=== PATIENT | male | born 1970 | race American Indian/Alaskan Native ===

== ENCOUNTER 2021-05-11 20:55 | Observation (INO) | payer MEDICAID ==
[2021-05-11 21:48] LABS: Basophils # (Auto) 0.1 K/mm3 (0.0-0.1); Basophils % (Auto) 2.1 % (0.0-1.8); Eosinophils # (Auto) 0.3 K/mm3 (0.0-0.4); Eosinophils % (Auto) 7.6 % (0.0-4.3); Hematocrit 34.5 % (35.5-45.6); Hemoglobin 10.9 gm/dl (11.8-15.2); Lymphocytes # (Auto) 1.1 K/mm3 (1.2-5.4); Lymphocytes % (Auto) 25.3 % (13.4-35.0); Mean Corpuscular HGB Conc 32 % (32-34); Mean Corpuscular Volume 99 fl (84-94); Monocytes # (Auto) 0.5 K/mm3 (0.0-0.8); Monocytes % (Auto) 11.2 % (0.0-7.3); Platelet Count 130 K/mm3 (140-440); Red Blood Count 3.49 M/mm3 (3.65-5.03); Red Cell Distribution Width 16.1 % (13.2-15.2)
--- NOTE | 2021-05-11 21:54 | XRay Report ---
CHEST 2 VIEWS INDICATION / CLINICAL INFORMATION: Chest Pain. COMPARISON: None available. FINDINGS: SUPPORT DEVICES: None. HEART / MEDIASTINUM: No significant abnormality. LUNGS / PLEURA: Granular opacities are noted scattered throughout the lungs. No pneumothorax. ADDITIONAL FINDINGS: No significant additional findings. IMPRESSION: 1. Granular opacities are noted scattered throughout the lungs which may represent atypical infectiou s process. Signer Name: Kirk Santos DO Signed: 05/11/2021 9:49 PM Workstation Name: [id number]
[2021-05-11 22:01] LABS: Albumin 4.7 g/dL (3.9-5); Blood Urea Nitrogen 69 mg/dL (9-20); Calcium 10.4 mg/dL (8.4-10.2); Hemolysis Index 10
[2021-05-11 22:06] LABS: Alanine Aminotransferase < 5 units/L (7-56); BUN/Creatinine Ratio 5
[2021-05-11 22:25] LABS: Chol/HDL Ratio 3.57 %; HDL Cholesterol 45 mg/dL (40-59); LDL Cholesterol,Direct 99 mg/dL (50-130)
[2021-05-11] MEDS ORDERED: ASPIRIN 81 MG TAB CHEW PO ONE (23:42)
[2021-05-11] MEDS ORDERED: oxyCODONE /ACETAMINOPHEN 5-325MG TAB PO ONE (23:42)
[2021-05-11] MEDS ORDERED: MORPHINE 4 MG/1 ML INJ IV ONE (23:42)
[2021-05-11] MEDS ORDERED: ONDANSETRON 4 MG/2 ML INJ IV ONE (23:42)
[2021-05-12] MEDS ORDERED: ASPIRIN 81 MG TAB CHEW PO ONE (00:45)
--- NOTE | 2021-05-12 00:45 | Emergency Department Report ---
ED Chest Pain HPI - General Chief Complaint: Chest Pain Stated Complaint: CHEST PAIN PUI?: No Time Seen by Provider: 05/11/21 21:14 Source: patient, EMS Mode of arrival: Stretcher Limitations: No Limitations - History of Present Illness Initial Comments: CC: chest pain HPI: This is a 50 yo male with hx of [place], CVA, ESRD on HD who presents with chest pain gradual onset. Sharp right to left chest pain. Has f/u for "MRI for heart". Received HD at [facility]. Has had chest pain intermittently for several months. Has had recent evaluation for similar symptoms. MD Complaint: chest pain -: Gradual, This evening Onset: during rest Severity scale (0 -10): 7 Quality: sharp Consistency: constant Improves With: nothing Worsens With: nothing Context: recent illness Treatments Prior to Arrival: none - Related Data Allergies Allergy/AdvReac Type Severity Reaction Status Date / Time No Known Allergies Allergy Verified 05/11/21 21:02 Heart Score - HEART Score History: Slightly suspicious EKG: Significant ST-depression Age: 45-65 Risk factors: 1-2 risk factors Troponin: 1-3x normal limit HEART Score: 5 - EKG Read Time Time EKG Completed: 21:57 EKG Read Time: 21:57 ED Review of Systems ROS: Stated complaint: CHEST PAIN Other details as noted in HPI Comment: All other systems reviewed and negative Constitutional: denies: chills, fever, malaise Respiratory: denies: cough, shortness of breath Cardiovascular: chest pain Gastrointestinal: denies: abdominal pain, nausea, vomiting Musculoskeletal: denies: back pain ED Past Medical Hx - Past Medical History Previous Medical History?: Yes Hx Hypertension: Yes Hx Heart Attack/AMI: Yes Hx Congestive Heart Failure: Yes Hx Liver Disease: Yes - Surgical History Past Surgical History?: Yes - Social History Smoking Status: Never Smoker Substance Use Type: None ED Physical Exam - General Limitations: No Limitations General appearance: alert, in no apparent distress - Head Head exam: Present: atraumatic, normocephalic - Eye Eye exam: Present: normal appearance - ENT ENT exam: Present: mucous membranes moist - Neck Neck exam: Present: normal inspection. Absent: full ROM - Respiratory Respiratory exam: Present: normal lung sounds bilaterally. Absent: respiratory distress, wheezes, rales, rhonchi - Cardiovascular Cardiovascular Exam: Present: normal heart sounds. Absent: systolic murmur, diastolic murmur, rubs, gallop - GI/Abdominal GI/Abdominal exam: Present: soft, normal bowel sounds. Absent: distended, tenderness, guarding, rebound - Rectal Rectal exam: Present: deferred - Extremities Exam Extremities exam: Present: normal inspection - Back Exam Back exam: Present: normal inspection - Neurological Exam Neurological exam: Present: alert, oriented X3 - Psychiatric Psychiatric exam: Present: normal affect, normal mood - Skin Skin exam: Present: warm, dry, intact, normal color. Absent: rash ED Course Vital Signs 05/11/21 05/11/21 05/12/21 21:02 21:44 00:03 Temperature 98.7 F Pulse Rate 85 81 Respiratory 19 15 Rate Blood Pressure 181/121 189/104 [Right] O2 Sat by Pulse 98 97 96 Oximetry ED Medical Decision Making - Lab Data Result diagrams: 05/11/21 21:30 05/11/21 21:30 Laboratory Results - last 24 hr 05/11/21 05/11/21 21:30 21:30 WBC 4.4 L RBC 3.49 L Hgb 10.9 L Hct 34.5 L MCV 99 H MCH 31 MCHC 32 RDW 16.1 H Plt Count 130 L Lymph % (Auto) 25.3 [place] % (Auto) 11.2 H Eos % (Auto) 7.6 H Baso % (Auto) 2.1 H Lymph # (Auto) 1.1 L [place] # (Auto) 0.5 Eos # (Auto) 0.3 Baso # (Auto) 0.1 Seg Neutrophils % 53.8 Seg Neutrophils # 2.4 Sodium 141 Potassium 5.1 H Chloride 97.0 L Carbon Dioxide 25 Anion Gap 24 BUN 69 H Creatinine 14.2 H Estimated GFR 4 BUN/Creatinine Ratio 5 Glucose 91 Calcium 10.4 H Total Bilirubin 0.40 AST 7 ALT < 5 L Alkaline Phosphatase 152 H Troponin T 0.214 H* Total Protein 7.5 Albumin 4.7 Albumin/Globulin Ratio 1.7 Triglycerides 95 Cholesterol 161 LDL Cholesterol Direct 99 HDL Cholesterol 45 Cholesterol/HDL Ratio 3.57 Lipase 62 H - EKG Data 05/12/21 00:43 EKG obtained 2157 EKG interpreted me Rate 70 bpm normal sinus rhythm normal axis normal intervals positive LVH nonspecific ST-T wave pattern no ST elevation - Radiology Data Radiology results: report reviewed Chest radiograph 2 views: Current opacity scattered throughout the months which may represent atypical infectious process - Medical Decision Making Chest pain: History of CAD, will admit for cardiac evaluation. No persistent tachycardia or hypoxia to indicate pulmonary embolism or infectious process. Patient received IV p.o. analgesia as well as aspirin. Critical care attestation.: If time is entered above; I have spent that time in minutes in the direct care of this critically ill patient, excluding procedure time. ED Disposition Clinical Impression: Acute coronary syndrome Disposition: ADMITTED INPATIENT Is pt being admited?: No Does the pt Need Aspirin: No Condition: Stable
[2021-05-12] MEDS ORDERED: NITROGLYCERIN 0.4 MG TAB SUBL SL PRN (02:42)
[2021-05-12] MEDS ORDERED: ACETAMINOPHEN 325 MG TAB PO PRN (02:42)
[2021-05-12] MEDS ORDERED: traMADol 50 MG TAB PO PRN (02:42)
[2021-05-12] MEDS ORDERED: MORPHINE 2 MG/1 ML INJ IV PRN (02:42)
[2021-05-12] MEDS ORDERED: HYDROmorphone 1 MG/1 ML INJ IV PRN (02:42)
--- NOTE | 2021-05-12 02:51 | History and Physical Report ---
History of Present Illness Date of examination: 05/12/21 Date of admission: 05/12/21 Chief complaint: Chest pain History of present illness: 50 yo male with past medical history of CVA, [place], end-stage renal disease on hemodialysis was brought to the emergency room because of chest pain. Chest pain is sharp 7/10 constant to left chest pain. Received HD at [facility]. Has had chest pain intermittently for several months. Has had recent evaluation for similar symptoms In the emergency room patient is found to have troponin of 0.214 also patient BUN is 69 creatinine is 14.2 and potassium is 5.1 she will going to admit the patient to put the patient on chest pain pathway we also consult cardiology and nephrology for evaluation Med rec is not available Past History Past Medical History: acute [place], ESRD, stroke Medications and Allergies Allergies Allergy/AdvReac Type Severity Reaction Status Date / Time No Known Allergies Allergy Verified 05/11/21 21:02 Active Meds: Active Medications Acetaminophen (Acetaminophen 325 Mg Tab) 650 mg PO Q6H PRN PRN Reason: Pain, Mild (1-3) Aspirin (Aspirin Ec 325 Mg Tab) 325 mg PO QDAY IVONE Atorvastatin Calcium (Atorvastatin 40 Mg Tab) 40 mg PO QHS IVONE Heparin Sodium (Porcine) (Heparin 5,000 Unit/1 Ml Vial) 5,000 unit SUB-Q Q8HR IVONE Hydromorphone HCl (Hydromorphone 1 Mg/1 Ml Inj) 0.25 mg IV Q5MIN PRN PRN Reason: Chest Pain Morphine Sulfate (Morphine 4 Mg/1 Ml Inj) 2 mg IV Q5MIN PRN PRN Reason: Chest Pain unrelieved by NTG Nitroglycerin (Nitroglycerin 0.4 Mg Tab Subl) 0.4 mg SL Q5M PRN PRN Reason: Chest Pain Pantoprazole Sodium (Pantoprazole 40 Mg Tab) 40 mg PO QDAY IVONE Sodium Chloride (Sodium Chloride 0.9% 10 Ml Flush Syringe) 10 ml IV PRN PRN PRN Reason: LINE FLUSH Tramadol HCl (Tramadol 50 Mg Tab) 50 mg PO Q6H PRN PRN Reason: Pain, Moderate (4-6) Review of Systems All systems: negative Cardiovascular: chest pain Exam - Constitutional Vitals: Temp Pulse Resp BP Pulse Ox 98.7 F 81 15 189/104 96 05/11/21 21:02 05/12/21 00:03 05/12/21 00:03 05/12/21 00:03 05/12/21 00:03 General appearance: Present: no acute distress, well-nourished - EENT Eyes: Present: PERRL ENT: hearing intact, clear oral mucosa - Neck Neck: Present: supple, normal ROM - Respiratory Respiratory effort: normal Respiratory: bilateral: diminished - Cardiovascular Heart Sounds: Present: S1 & S2. Absent: rub, click - Extremities Extremities: pulses symmetrical, No edema Peripheral Pulses: within normal limits - Abdominal General gastrointestinal: Present: soft, non-tender, non-distended, normal bowel sounds Male genitourinary: Present: normal - Integumentary Integumentary: Present: clear, warm, dry - Musculoskeletal Musculoskeletal: gait normal, strength equal bilaterally - Psychiatric Psychiatric: appropriate mood/affect, intact judgment & insight - Neurologic Neurologic: CNII-XII intact, moves all extremities HEART Score - HEART Score EKG: Significant ST-depression Age: 45-65 Risk factors: 1-2 risk factors Troponin: Troponin T 0.214 ng/mL (0.00-0.029) H* 05/11/21 21:30 Troponin: 1-3x normal limit Results - Labs CBC & Chem 7: 05/11/21 21:30 05/11/21 21:30 Labs: Laboratory Last Values WBC 4.4 K/mm3 (4.5-11.0) L 05/11/21 21: RBC 3.49 M/mm3 (3.65-5.03) L 05/11/21 21: Hgb 10.9 gm/dl (11.8-15.2) L 05/11/21 21: Hct 34.5 % (35.5-45.6) L 05/11/21 21:30 MCV 99 fl (84-94) H 05/11/21 21: MCH 31 pg (28-32) 05/11/21 21: MCHC 32 % (32-34) 05/11/21 21: RDW 16.1 % (13.2-15.2) H 05/11/21 21:30 Plt Count 130 K/mm3 (140-440) L 05/11/21 21: Lymph % (Auto) 25.3 % (13.4-35.0) 05/11/21 21:30 [place] % (Auto) 11.2 % (0.0-7.3) H 05/11/21 21: Eos % (Auto) 7.6 % (0.0-4.3) H 05/11/21 21: Baso % (Auto) 2.1 % (0.0-1.8) H 05/11/21 21: Lymph # (Auto) 1.1 K/mm3 (1.2-5.4) L 05/11/21 21:30 [place] # (Auto) 0.5 K/mm3 (0.0-0.8) 05/11/21 21: Eos # (Auto) 0.3 K/mm3 (0.0-0.4) 05/11/21 21: Baso # (Auto) 0.1 K/mm3 (0.0-0.1) 05/11/21 21: Seg Neutrophils % 53.8 % (40.0-70.0) 05/11/21 21: Seg Neutrophils # 2.4 K/mm3 (1.8-7.7) 05/11/21 21:30 Sodium 141 mmol/L (137-145) 05/11/21 21: Potassium 5.1 mmol/L (3.6-5.0) H 05/11/21 21: Chloride 97.0 mmol/L (98-107) L 05/11/21 21: Carbon Dioxide 25 mmol/L (22-30) 05/11/21 21: Anion Gap 24 mmol/L 05/11/21 21: BUN 69 mg/dL (9-20) H 05/11/21 21:30 Creatinine 14.2 mg/dL (0.8-1.3) H 05/11/21 21:30 Estimated GFR 4 ml/min 05/11/21 21: BUN/Creatinine Ratio 5 % 05/11/21 21: Glucose 91 mg/dL (75-100) 05/11/21 21: Calcium 10.4 mg/dL (8.4-10.2) H 05/11/21 21:30 Total Bilirubin 0.40 mg/dL (0.1-1.2) 05/11/21: AST 7 units/L (5-40) 05/11/21 21:30 ALT < 5 units/L (7-56) L 05/11/21 21:30 Alkaline Phosphatase 152 units/L (35-129) H 05/11/21 21:30 Troponin T 0.214 ng/mL (0.00-0.029) H* 05/11/21 21:30 Total Protein 7.5 g/dL (6.3-8.2) 05/11/21 21:30 Albumin 4.7 g/dL (3.9-5) 05/11/21 21:30 Albumin/Globulin Ratio 1.7 % 05/11/21 21: Triglycerides 95 mg/dL (2-149) 05/11/21 21: Cholesterol 161 mg/dL (50-199) 05/11/21 21: LDL Cholesterol Direct 99 mg/dL (50-130) 05/11/21 21: HDL Cholesterol 45 mg/dL (40-59) 05/11/21 21: Cholesterol/HDL Ratio 3.57 % 05/11/21: Lipase 62 units/L (13-60) H 05/11/21 21:30 - Imaging and Cardiology Chest x-ray: report reviewed Assessment and Plan VTE prophylaxis?: Chemical Plan of care discussed with patient/family: Yes - Patient Problems (1) Acute coronary syndrome Current Visit: Yes Status: Acute Plan to address problem: Admit the patient to the medical floor telemetry. Aspirin 325 mg p.o. daily. Lipitor 40 mg p.o. daily. Nitroglycerin as needed. We will do the serial cardiac enzyme. We do the echocardiogram and consult cardiology for evaluation (2) CAD (coronary artery disease) Current Visit: Yes Status: Acute Plan to address problem: Aspirin 325 mg p.o. daily. Lipitor 40 mg p.o. daily. Nitroglycerin as needed. We will do the serial cardiac enzyme. We do the echocardiogram and consult cardiology for evaluation (3) Hypertension Current Visit: Yes Status: Acute Plan to address problem: Hydralazine 10 mg IV every 6 hours as needed. We continue the home medication (4) End-stage renal disease on hemodialysis Current Visit: Yes Status: Acute Plan to address problem: Avoid nephrotoxic drug. Will consult nephrology for hemodialysis in the morning. Recheck BMP in the morning (5) CHF (congestive heart failure) Current Visit: Yes Status: Acute Plan to address problem: Stable. We will continue the home medication. Echocardiogram. Cardiology evaluation (6) DVT prophylaxis Current Visit: Yes Status: Acute Plan to address problem: Heparin 5000 units subcu every 8 hours for DVT prophylaxis. Protonix 40 mg p.o. daily for GI prophylaxis. Patient is a full code
[2021-05-12 05:10] VITALS: BP 185/100
[2021-05-12] MEDS ORDERED: HEPARIN 5,000 UNIT/1 ML VIAL SUB-Q SCH (06:00)
[2021-05-12 06:02] LABS: Basophils # (Auto) 0.1 K/mm3 (0.0-0.1); Basophils % (Auto) 1.8 % (0.0-1.8); Eosinophils # (Auto) 0.4 K/mm3 (0.0-0.4); Eosinophils % (Auto) 8.9 % (0.0-4.3); Hematocrit 31.7 % (35.5-45.6); Hemoglobin 10.1 gm/dl (11.8-15.2); Lymphocytes # (Auto) 1.4 K/mm3 (1.2-5.4); Lymphocytes % (Auto) 30.3 % (13.4-35.0); Mean Corpuscular HGB Conc 32 % (32-34); Mean Corpuscular Volume 96 fl (84-94); Monocytes # (Auto) 0.4 K/mm3 (0.0-0.8); Platelet Count 123 K/mm3 (140-440); Red Cell Distribution Width 15.7 % (13.2-15.2)
--- NOTE | 2021-05-12 09:57 | Electrocardiograph Report ---
[facility] Test Date: 2021-05-11 Test Time: 21:57:24 Pat Name: DESI VERONICA JR Department: Room: [place] [address] Gender: M Exchange Consultant: LITA : 1970 Requested By: NAZIA HARDY Order Number: [id number] Reading MD: Mandeep Correa Measurements Intervals [place] Rate: 70 P: 53 SC: 178 QRS: 45 QRSD: 82 T: 134 QT: 407 QTc: 441 Interpretive Statements Sinus rhythm Left atrial enlargement LVH with secondary repolarization abnormality Borderline ST elevation, inferior leads No previous ECG available for comparison Electronically Signed On 05-12-2021 9:56:43 EST by Mandeep Correa
[2021-05-12] MEDS ORDERED: PANTOPRAZOLE 40 MG TAB PO SCH (10:00)
--- NOTE | 2021-05-12 16:39 | Discharge Summary ---
Providers - Providers Date of Admission: 05/12/21 02:42 Date of discharge: 05/12/21 Attending physician: FELIPE ORDOÑEZ 05/12/21 Consult to Cardiac Rehabilitation [CONS] Routine Reason For Exam: Phase I 05/12/21 02:42 Consult to Cardiology [CONS] Routine Consulting Provider: KATHIE MOORE Reason For Exam: Chest pain 05/12/21 02:45 Consult to Physician [CONS] Routine Comment: Consulting Provider: CHIO VASQUEZ Physician Instructions: Reason For Exam: esrd Primary care physician: DERMATOLOGY PROCEDURAL PHYSICIAN Hospitalization Reason for admission: Chest pain Condition: Stable Pertinent studies: Chest x-ray Hospital course: 50 yo male with past medical history of CVA, [place], end-stage renal disease on hemodialysis was brought to the emergency room because of chest pain. Chest pain is sharp 7/10 constant to left chest pain. Received HD at [facility]. Has had chest pain intermittently for several months. Has had recent evaluation for similar symptoms In the emergency room patient is found to have troponin of 0.214 also patient BUN is 69 creatinine is 14.2 and potassium is 5.1 she will going to admit the patient to put the patient on chest pain pathway we also consult cardiology and nephrology for evaluation. This morning patient did not want to stay in the hospital, wanted to go to his dialysis center and signed necessary papers and left AMA caregivers Discussed with them the risks and consequences of leaving AMA, he verbalized understanding signed the necessary paperwork and left AMA Patient left AMA before I could round on the patient Diagnosis and management (1) Acute coronary syndrome Current Visit: Yes Status: Acute Plan to address problem: Admit the patient to the medical floor telemetry. Aspirin 325 mg p.o. daily. Lipitor 40 mg p.o. daily. Nitroglycerin as needed. We will do the serial cardiac enzyme. We do the echocardiogram and consult cardiology for evaluation (2) CAD (coronary artery disease) Current Visit: Yes Status: Acute Plan to address problem: Aspirin 325 mg p.o. daily. Lipitor 40 mg p.o. daily. Nitroglycerin as needed. We will do the serial cardiac enzyme. We do the echocardiogram and consult cardiology for evaluation (3) Hypertension Current Visit: Yes Status: Acute Plan to address problem: Hydralazine 10 mg IV every 6 hours as needed. We continue the home medication (4) End-stage renal disease on hemodialysis Current Visit: Yes Status: Acute Plan to address problem: Avoid nephrotoxic drug. Will consult nephrology for hemodialysis in the morning. Recheck BMP in the morning (5) CHF (congestive heart failure) Current Visit: Yes Status: Acute Plan to address problem: Stable. We will continue the home medication. Echocardiogram. Cardiology evaluation (6) DVT prophylaxis Current Visit: Yes Status: Acute Plan to address problem: Heparin 5000 units subcu every 8 hours for DVT prophylaxis. Protonix 40 mg p.o. daily for GI prophylaxis. Patient is a full code Patient left AMA Dictation box Disposition: LEFT AGAINST MEDICAL ADVICE Final Discharge Diagnosis (Prints w/discharge instructions): Acute coronary syndrome. Coronary artery disease. Hypertension. ESRD on hemodialysis. Congestive heart failure Time spent for discharge: 35 min Core Measure Documentation - Palliative Care Palliative Care/ Comfort Measures: Not Applicable - Core Measures Any of the following diagnoses?: none Exam - Physical Exam Narrative exam: Patient left AMA - Constitutional Vitals: Temp Pulse Resp BP Pulse Ox 98.8 F 76 16 185/100 96 05/12/21 05:06 05/12/21 05:06 05/12/21 05:06 05/12/21 05:06 05/12/21 05:06 Plan Additional Instructions: Patient left AMA Follow up with: PRIMARY MD SHAGGY [Primary Care Provider] - 3-5 Days
[2021-05-13] MEDS ORDERED: ASPIRIN EC 325 MG TAB PO SCH (10:00)
== END 2021-05-12 08:43 | disposition left against medical advice (07) ==
LOC: ED 20:55 → 4A 05-12 02:42
PROVIDERS: ADMIT Hospitalist; ATTEND Internal Medicine
DX: I24.9 Acute ischemic heart disease, unspecified (principal); I25.10 Atherosclerotic heart disease of native coronary artery without angina pectoris; I13.2 Hypertensive heart and chronic kidney disease with heart failure and with stage 5 chronic kidney disease, or end stage renal disease; I50.9 Heart failure, unspecified; N18.6 End stage renal disease; I25.2 Old myocardial infarction; K76.9 Liver disease, unspecified; Z86.73 Personal history of transient ischemic attack (TIA), and cerebral infarction without residual deficits; Z99.2 Dependence on renal dialysis; Z79.82 Long term (current) use of aspirin
CPT/HCPCS: 36415; 71046; 80048; 80053; 80061; 83690; 84484; 85025; 93005; 96372; 99285; G0378; J1644; J2270; J2405